=== PATIENT | male | born 1945 | race Caucasian/White ===

== ENCOUNTER → 2017-04-05 | Day surgery (SDC) | payer OTHER ==
[~2017-04-05] VITALS: Ht 175.3 cm; Wt 93.0 kg
--- NOTE | 2017-04-05 08:58 | Operative Report ---
Operative/Inv Procedure Report Surgery Date: 04/05/17 Name of Procedure: Laparoscopic left inguinal hernia repair Pre-Operative Diagnosis: Left inguinal hernia Post-Operative Diagnosis: Same Estimated Blood Loss: scant Surgeon/Couture Alterations Dressmaker: Saman Barksdale MD Anesthesia: general endotracheal tube Implants: Parietex left inguinal hernia mesh Operative/Procedure Note Note: After consent patient is brought to the operating room laid supine. General anesthesia was obtained and the abdomen was prepped and draped. Skin was anesthetized with local anesthesia and a transverse infraumbilical incision made sharply. We identified the rectus fascia and incised transversely. Stay sutures were placed. Rectus muscle was retracted laterally and a dissecting balloon placed posterior to it. It was inflated under direct vision the camera and replaced with a blunt Pinzon port. Gas was instilled. 2, 5 mm ports were placed in the infraumbilical midline after local anesthesia was instilled and under direct vision and camera. Began our dissection at the pubis and delineated the symphysis. William's ligament was identified and cleared. There were dense adhesions to the midline which were taken down with cautery. These were present due to his previous laparoscopic right inguinal hernia repair. Then dissected laterally and developed the iliopubic tract. The cord structures were circumferentially dissected. There was a large indirect fat-containing hernia which was delivered from the indirect space and reflected medially. Once the dissection was completed a left -sided piece of Parietex mesh was placed in the cavity. It was placed around the cord structures re-create the internal ring and cover the femoral and direct spaces as well. Gas was allowed to escape on maintaining proper orientation of the mesh. The fascia was closed with 0 Vicryl suture. Skin incisions closed with 4-0 Vicryl. Steri-Strips and sterile dressing applied. Sponge and needle counts are correct. Findings: indirect CC: Sia KIM,Deepa Jay; Philip KIM,Rafat Mobley
== END ==
LOC: STS 00:42
DX: K40.90 Unilateral inguinal hernia, without obstruction or gangrene, not specified as recurrent (principal); I48.91 Unspecified atrial fibrillation; I10 Essential (primary) hypertension; K21.0 Gastro-esophageal reflux disease with esophagitis; K22.70 Barrett's esophagus without dysplasia; G47.33 Obstructive sleep apnea (adult) (pediatric)
CPT/HCPCS: C1781; C9399; J0131; J0690